=== PATIENT | male | born 1945 | race Caucasian/White ===

== ENCOUNTER 2022-09-20 13:53 | Emergency (ER) | payer MEDICARE, SELFPAY ==
--- NOTE | 2022-09-20 14:04 | ED.URI ---
HPI - URI/Sore Throat General Chief Complaint: Upper Respiratory Infection Stated Complaint: cough and sore throat Source: patient and RN notes reviewed History of Present Illness HPI Narrative: 77-year-old male presents to Urgent Care complains of a cough and sore throat for the last week. Patient is unknown on the fevers. Patient denies any chest pain, shortness of breath, congestion, ear pain, vomiting, diarrhea, or abdominal pain. Patient states his had the same symptoms a week before and was placed on antibiotic with good results. Some parts of this dictation were generated by voice recognition software and may contain typographical and/or grammatical inaccuracies. Related Data Home Medications Medication Instructions Recorded Confirmed famotidine 20 mg tablet mg 09/20/22 glipizide 10 mg tablet mg 09/20/22 meloxicam 15 mg tablet mg 09/20/22 nifedipine 90 mg tablet,extended mg PO 09/20/22 release pravastatin 40 mg tablet mg 09/20/22 tamsulosin 0.4 mg capsule mg PO 09/20/22 valsartan 160 tablet 09/20/22 mg-hydrochlorothiazide 12.5 mg tablet Allergies Allergy/AdvReac Type Severity Reaction Status Date / Time No Known Allergies Allergy Unknown Unverified 02/24/19 10:46 Review of Systems Review of Systems: Pertinent positives and pertinent negatives per HPI. PMFSH Comments At the time of my signature, I reviewed and agree with the nursing past medical, surgical, social, and family history. There is no relevant family history pertinent to the patient complaint. Exam Narrative: GENERAL: This is a well-nourished, well-developed patient, in no apparent distress. HEAD: normocephalic, atraumatic. EYES: Sclera clear/white. Vision is grossly intact. EARS: External ears normal, auditory canals clear and without drainage, TMs normal without perforation. Hearing grossly intact. NOSE: External nose normal with no obvious nasal discharge, nares without redness, no rhinorrhea. THROAT: Mucous membranes moist, posterior pharynx erythema. NECK: Neck supple, non-tender without lymphadenopathy, masses or thyromegaly. CARDIOVASCULAR: Regular rate and rhythm without murmurs, gallops, or rubs. RESPIRATORY: Clear to auscultation. Breath sounds equal bilaterally. No wheezes, rales, or rhonchi. GASTROINTESTINAL: Abdomen soft, non-tender, nondistended. Bowel sounds are active. No hepato-splenomegaly, or palpable masses. No guarding. SKIN: warm, intact with no suspicious lesions or rash, good texture and turgor. NEURO: awake, alert, and oriented to person, place and time. There were no obvious focal neurologic abnormalities. EXTREMITIES: No clubbing, cyanosis, or edema. No joint tenderness, effusion, or edema noted. BACK: Nontender without deformity or crepitance. No flank tenderness. Course Course Level of Care: Express Care Visit Vital Signs Vital signs: Vital Signs Temperature 100.4 F H 09/20/22 14:10 Pulse Rate 111 H 09/20/22 14:10 Respiratory Rate 22 H 09/20/22 14:10 Blood Pressure 146/76 H 09/20/22 14:10 Pulse Oximetry 97 09/20/22 14:10 Oxygen Delivery Room Air 09/20/22 14:10 Temperature 100.4 F H 09/20/22 14:10 Pulse Rate 111 H 09/20/22 14:10 Respiratory Rate 22 H 09/20/22 14:10 Blood Pressure 146/76 H 09/20/22 14:10 Pulse Oximetry 97 09/20/22 14:10 Oxygen Delivery Room Air 09/20/22 14:10 Reviewed MDM - URI/Sore Throat MDM Narrative Medical decision making narrative: Increase fluids at home. Avoid any and all smoke. May use a humidifier in the bedroom. Increase your Vitamin C. Follow-up with personal physician in 2-5 days. Rapid strep is negative in the office; however we will send to the lab for confirmation; there is a small percentage chance that it can come back positive; if it is, we will call you in 2-3days; and your prescription will be call in to your pharmacy. However, there is NO indication for antibiotic at this time. -Increase your fluids and Vitamin
[2022-09-20 14:10] VITALS: BP 146/76; PULSE 111; RESP 22; TEMP 38; O2SAT 97
== END 2022-09-20 14:35 | disposition home or self-care (01) ==
PROVIDERS: Emergency Provider Nurse Practitioner Family; PCP Internal Medicine
DX: J40 Bronchitis, not specified as acute or chronic (principal); E11.9 Type 2 diabetes mellitus without complications
CPT/HCPCS: 87081; 87880; 99203; G0463

== ENCOUNTER 2025-01-05 08:31 | Emergency (ER) | payer MEDICARE, SELFPAY ==
--- OUTSIDE RECORDS SUMMARY | 2025-01-05 08:33 | XMS_ITS | Encounter Summary ---
Author Organization [facility] Address [address] [place] [address] Phone Care Team Providers Care Shipping Technician Name Role Phone Ricardo Wayne MD Primary Care Provider [phone] Nima Wisdom MD Unavailable [phone] Brett Winter MD Unavailable Ai Lopez MD Unavailable Jonathon Castaneda OD Unavailable [phone] Reason for Visit * Reason Comments Medication Refill Encounter Details Date Type Department Care Team (Late st Contact Info) Description 12/29/2022 Refill [facility] - Primary Care - [place] [address] [place] [address] Ricardo Wayne MD [address] [place] [address] Medication Refill Social History Tobacco Use Types Packs/Day Years Used Date Smoking Tobacco: Former Cigarettes 1 20 Smokeless Tobacco: Never Comments:Quit 40yrs ago Alcohol Use Standard Drinks/Week Comments No 0 (1 standard drink = 0.6 oz pur e alcohol) PHQ-2 Answer Date Recorded Total Score - Questions 1-9 0 09/11 Sexually Active Control Partners Comments Not Currently Sex and Gender Information Value Date Recorded Sex Assigned at Male 01/23/2023 7:40 AM CDT Legal Sex Male 10:30 PM CDT Gender Identity Male 01/23/2023 7:40 AM CDT Sexual Orientation Not on file COVID-19 Exposure Response Date Recorded In the last 10 days, have yo u been in contact with someone who was confirmed or suspected to have Coronavirus/COVID-19? No / Unsure 12/06/2022 8:01 AM CDT documented as of this encounter Miscellaneous Notes * Telephone Encounter - Ricardo Wayne MD - 12/30/2022 7:42 AM CDT Refill request approved. * Telephone Encounter - Selma Leal RN - 12/29/2022 4:13 PM CDT Medication failed the protocol, provider to review and approve the medication order if appropriate. Requested Prescriptions Pending Prescriptions Disp Refills meloxicam (MOBIC) 15 MG Tablet [Pharmacy Med Name: MELOXICAM 15MG TABLETS] 90 Tablet 1 Sig: TAKE 1 TABLET BY MOUTH DAILY NSAIDs Protocol Failed - 12/29/2022 4:12 PM Failed - Not delegated, patient not between 1 and 65 years of age Passed - Normal serum creatinine in past 12 months CREATININE, BLOOD Date Value Ref Range Status 12/06/2022 0.96 0.80 - 1.30 mg/dL Final Passed - Visit with relevant provider in past 12 months or upcoming 90 days Recent Visits Date Type Provider Dept 12/06/22 Office Visit Ricardo Wayne MD [facility] 06/02/22 Office Visit Ricardo Wayne MD [facility] Showing recent visits within past 365 days and meeting all other requirements Future Appointments No visits were found meeting these conditions. Showing future appointments within next 90 days and meeting all other requirements Passed - No matching NSAID med order in past 45 days No matching medication orders between 11/14/2022 4:13 PM and 12/29/2022 4:13 PM Passed - AST less than 55 or ALT less than 90 in past 12 months SGOT (AST) Date Value Ref Range Status 12/06/2022 18 <=40 U/L Final SGPT (ALT) Date Value Ref Range Status 12/06/2022 19 <=41 U/L Final Passed - HGB greater than 10 or HCT greater than 30 in past 12 months HEMOGLOBIN (HGB) Date Value Ref Range Status 12/06/2022 15.7 13.0 - 16.5 g/dL Final HEMATOCRIT (HCT) Date Value Ref Range Status 12/06/2022 48.9 38.0 - 50.0 % Final documented in this encounter Plan of Treatment Upcoming Encounters Date Type Department Care Team (Late st Contact Info) Description 01/20/2025 8:15 AM CDT Office Visit [facility] - Primary Care - [place] [address] [place] [address] Ricardo Wayne MD [address] [place] [address] 01/28/2025 8:00 AM CDT Office Visit [facility] - Endocrinology - [place] [address] [place] [address] Ai Lopez MD [address] [address] 03/19/2025 10:20 AM CDT Office Visit [facility] Oncology Services [address] [place] [address] Nima Wisdom MD [address] [place] [address] Discharge Disposition: Discharged to home or Selfcare documented as of this encounter Visit Diagnoses Not on filedocumented in this encounter Additional Health Concerns Assessment Noted Time PHQ-9 Depression Total Score: 0 11/13/19 21 9:00 AM CDT documented as of this encounter Care Teams Shipping Technician Relationship Specialty Start Date End Date Ricardo Wayne MD [address] [place] [address] PCP - General Internal Medicine 03/08/15 Nima Wisdom MD [address] [place] [address] Consulting Physician Hematology 08/25/15 Brett Winter MD [address] [place] [address] Consulting Physician Orthopaedic Sports Medicine 09/20/18 Ai Lopez MD [address] [phone] Consulting Physician Endocrinology 05/14/20 Jonathon Castaneda, IRIS [address] [place] [address] Consulting Physician Ophthalmology 04/18/24 documented as of this encounter
--- OUTSIDE RECORDS SUMMARY | 2025-01-05 08:33 | XMS_ITS | Encounter Summary ---
Author Organization [facility] Address [address] [place] [address] Phone Care Team Providers Care Commercial Engineer Name Role Phone Ricardo Wayne MD Primary Care Provider [phone] Nima Wisdom MD Unavailable [phone] Brett Winter MD Unavailable Ai Lopez MD Unavailable Jonathon Castaneda OD Unavailable [phone] Reason for Visit * Reason Comments Medication Refill Encounter Details Date Type Department Care Team (Late st Contact Info) Description 03/13/2021 Refill [facility] - Primary Care - [place] [address] [place] [address] Ricardo Wayne MD [address] [place] [address] Medication Refill Social History Tobacco Use Types Packs/Day Years Used Date Smoking Tobacco: Former Cigarettes 1 20 Smokeless Tobacco: Never Alcohol Use Standard Drinks/Week Comments No 0 (1 standard drink = 0.6 oz pur e alcohol) PHQ-2 Answer Date Recorded Total Score - Questions 1-9 0 08/2020 Sex and Gender Information Value Date Recorded Sex Assigned at Male 01/23/2023 7:40 AM CDT Legal Sex Male 10:30 PM CDT Gender Identity Male 01/23/2023 7:40 AM CDT Sexual Orientation Not on file documented as of this encounter Miscellaneous Notes * Telephone Encounter - Nato Birch PAC - 03/15/2021 10:55 AM CDT Rx refill approved. * Telephone Encounter - Selma Leal RN - 03/15/2021 9:25 AM CDT Medication failed the protocol, provider to review and approve the medication order if appropriate. Requested Prescriptions Pending Prescriptions Disp Refills meloxicam (MOBIC) 15 MG Tablet [Pharmacy Med Name: MELOXICAM 15 MG TABLET] 90 Tablet 0 Sig: TAKE 1 TABLET BY MOUTH EVERY DAY NSAIDs Protocol Failed - 03/15/2021 9:25 AM Failed - Not delegated, patient not between 1 and 65 years of age Passed - Normal serum creatinine in past 12 months CREATININE, BLOOD Date Value Ref Range Status 11/12/2020 0.88 0.80 - 1.30 mg/dL Final Passed - Visit with relevant provider in past 12 months or upcoming 90 days Recent Visits Date Type Provider Dept 11/12/20 Office Visit Ricardo Wayne MD [facility] [place] [facility] 05/14/20 Office Visit Ricardo Wayne MD [facility] [place] [facility] Showing recent visits within past 365 days and meeting all other requirements Future Appointments Date Type Provider Dept 05/21/21 Appointment Ricardo Wayne MD [facility] [place] [facility] Showing future appointments within next 90 days and meeting all other requirements Passed - No matching NSAID med order in past 45 days No matching medication orders between 01/29/2021 9:25 AM and 03/15/2021 9:25 AM Passed - AST less than 55 or ALT less than 90 in past 12 months SGOT (AST) Date Value Ref Range Status 11/12/2020 17 <=40 U/L Final SGPT (ALT) Date Value Ref Range Status 11/12/2020 19 <=41 U/L Final Passed - HGB greater than 10 or HCT greater than 30 in past 12 months HEMOGLOBIN (HGB) Date Value Ref Range Status 11/12/2020 13.6 13.0 - 16.5 g/dL Final HEMATOCRIT (HCT) Date Value Ref Range Status 11/12/2020 42.0 38.0 - 50.0 % Final documented in this encounter Plan of Treatment Upcoming Encounters Date Type Department Care Team (Late st Contact Info) Description 01/20/2025 8:15 AM CDT Office Visit [facility] Primary Care - [place] [address] [place] [address] Ricardo Wayne MD [address] [place] [address] 01/28/2025 8:00 AM CDT Office Visit [facility] Endocrinology - [place] [address] [place] [address] Ai Lopez MD [address] [address] 03/19/2025 10:20 AM CDT Office Visit [facility] - Cancer Center Oncology Services [address] [place] [address] Nima Wsidom MD [address] [place] [address] Discharge Disposition: Discharged to home or Selfcare documented as of this encounter Visit Diagnoses Not on filedocumented in this encounter Additional Health Concerns Assessment Noted Time PHQ-9 Depression Total Score: 0 11/13/19 9:00 AM CDT documented as of this encounter Care Teams Commercial Engineer Relationship Specialty Start Date End Date Ricardo Wayne MD [address] [place] [address] PCP - General Internal Medicine 03/08/15 Nima Wisdom MD [address] [place] [address] Consulting Physician Hematology 08/25/15 Brett Winter MD [address] [place] [address] Consulting Physician Orthopaedic Sports Medicine 09/20/18 Ai Lopez MD [address] [address] Consulting Physician Endocrinology 05/14/20 Jonathon Castaneda OD [address] [place] [address] Consulting Physician Ophthalmology 04/18/24 documented as of this encounter
--- OUTSIDE RECORDS SUMMARY | 2025-01-05 08:33 | XMS_ITS | Encounter Summary ---
Author Organization [facility] Address [address] [place] [address] Phone Care Team Providers Care Drawer Fitter Name Role Phone Ricardo Wayne MD Primary Care Provider [phone] Nima Wisdom MD Unavailable [phone] Brett Winter MD Unavailable Ai Lopez MD Unavailable Jonathon Castaneda OD Unavailable [phone] Reason for Visit * Reason Comments Medication Refill Encounter Details Date Type Department Care Team (Late st Contact Info) Description 12/19/2021 Refill [facility] - Primary Care - [place] [address] [place] [address] Ricardo Wayne MD [address] [place] [address] Medication Refill Social History Tobacco [...] suspected to have Coronavirus/COVID-19? No / Unsure 12/01/2021 10:28 AM CDT documented as of this encounter Plan of Treatment Upcoming Encounters Date Type Department Care Team (Late st Contact Info) Description 01/20/2025 8:15 AM CDT Office Visit [facility] - Primary Care - [place] [address] [place] [address] Ricardo Wayne MD [address] [place] [address] 01/28/2025 8:00 AM CDT Office Visit [facility] - Endocrinology [facility] [address] [place] [address] Ai Lopez MD [address] [address] 03/19/2025 10:20 AM CDT Office Visit [facility] - Cancer Center Oncology Services [address] [place] [address] Nima Wisdom MD [address] [place] [address] Discharge Disposition: Discharged to home or Selfcare documented as of this encounter Visit Diagnoses Diagnosis Benign prostatic hyperplasia with lower urinary tract symptoms documented in this encounter Additional Health Concerns Assessment Noted Time PHQ-9 Depression Total Score: 0 11/13/19 21 9:00 AM CDT documented as of this encounter Care Teams Drawer Fitter Relationship Specialty Start Date End Date Ricardo Wayne MD [address] [place] [address] PCP - General Internal Medicine 03/08/15 Nima Wisdom MD [address] [place] [address] Consulting Physician Hematology 08/25/15 Brett Winter MD [address] [place] [address] Consulting Physician Orthopaedic Sports Medicine 09/20/18 Ai Lopez MD [address] [address] Consulting Physician Endocrinology 05/14/20 Jonathon Castaneda OD [address] [place] [address] [place] [address] Consulting Physician Ophthalmology 04/18/24 documented as of this encounter
--- OUTSIDE RECORDS SUMMARY | 2025-01-05 08:33 | XMS_ITS | Encounter Summary ---
Author Organization [facility] Address [address] [place] [address] Phone Care Team Providers Care Manager Shift Name Role Phone Ricardo Wayne MD Primary Care Provider [phone] Nima Wisdom MD Unavailable [phone] Brett Winter MD Unavailable Ai Lopez MD Unavailable Jonathon Castaneda OD Unavailable [phone] Reason for Visit * Reason Comments Medication Refill Encounter Details Date Type Department Care Team (Late st Contact Info) Description 12/06/2021 Refill [facility] - Primary Care - [place] [address] [place] [address] Ricardo Wayne MD [address] [place] [address] Medication Refill Social History Tobacco [...] encounter Miscellaneous Notes * Telephone Encounter - Yue Jacobs RN - 12/07/2021 8:00 AM CDT Medication discontinued 12/01/2021. documented in this encounter Plan of Treatment Upcoming Encounters Date Type Department Care Team (Late st Contact Info) Description 01/20/2025 8:15 AM CDT Office Visit [facility] - Primary Care - [place] [address] [place] [address] Ricardo Wayne MD [address] [place] [address] 01/28/2025 8:00 AM CDT Office Visit [facility] - Endocrinology [facility] [address] [place] [address] Ai Lopez MD [address] [address] 03/19/2025 10:20 AM CDT Office Visit [facility] Cancer Center Oncology Services [address] [place] [address] Nima Wisdom MD [address] [place] [address] Discharge Disposition: Discharged to home or Selfcare documented as of this encounter Visit Diagnoses Not on filedocumented in this encounter Additional Health Concerns Assessment Noted Time PHQ-9 Depression Total Score: 0 11/13/19 21 9:00 AM CDT documented as of this encounter Care Teams Manager Shift Relationship Specialty Start Date End Date Ricardo Wayne MD [address] [place] [address] PCP - General Internal Medicine 03/08/15 Nima Wisdom MD [address] [place] [address] Consulting Physician Hematology 08/25/15 Brett Winter MD [address] [place] [address] Consulting Physician Orthopaedic Sports Medicine 09/20/18 Ai Lopez MD [address] [address] Consulting Physician Endocrinology 05/14/20 Jonathon Castaneda, OD [address] [place] [address] Consulting Physician Ophthalmology 04/18/24 documented as of this encounter
--- OUTSIDE RECORDS SUMMARY | 2025-01-05 08:33 | XMS_ITS | Encounter Summary ---
Author Organization [facility] Address [address] [place] [address] Phone Care Team Providers Care Financial Reporting Accountant Name Role Phone Ricardo Wayne MD Primary Care Provider [phone] Nima Wisdom MD Unavailable [phone] Brett Winter MD Unavailable Ai Lopez MD Unavailable Jonathon Castaneda OD Unavailable [phone] Reason for Visit * Reason Comments Medication Refill Encounter Details Date Type Department Care Team (Late st Contact Info) Description 04/21/2021 Refill [facility] [address] [place] [address] Ricardo Wayne MD [address] [place] [address] Medication Refill Social History Tobacco Use Types [...] Exposure Response Date Recorded In the last month, have you been in contact with someone who was confirmed or suspected to have Coronavirus / COVID-19? No / Unsure 04/13/2021 7:44 AM CDT documented as of this encounter Miscellaneous Notes * Telephone Encounter - Jamilah Jenkins RN - 04/22/2021 8:02 AM PERSONNEL SECURITY SPECIALIST Medication approved and signed per standing order protocol. ONNEL SECURITY SPECIALIST documented in this encounter Plan of Treatment Upcoming Encounters Date Type Department Care Team (Late st Contact Info) Description 01/20/2025 8:15 AM CDT Office Visit [facility] - Primary Care - [place] [address] [place] [address] Ricardo Wayne MD [address] [place] [address] 01/28/2025 8:00 AM CDT Office Visit [facility] - Endocrinology - [place] [address] [place] [address] Ai Lopez MD [address] [address] 03/19/2025 10:20 AM CDT [facility] [address] [place] [address] Nima Wisdom MD [address] [place] [address] Discharge Disposition: Discharged to home or Selfcare documented as of this encounter Visit Diagnoses Diagnosis Benign prostatic hyperplasia with lower urinary tract symptoms documented in this encounter Additional Health Concerns Assessment Noted Time PHQ-9 Depression Total Score: 0 06/03/20 21 9:00 AM CDT documented as of this encounter Care Teams Financial Reporting Accountant Relationship Specialty Start Date End Date Ricardo Wayne MD [address] [place] [address] PCP - General Internal Medicine 03/08/15 Nima Wisdom MD [address] [place] [address] Consulting Physician Hematology 08/25/15 Brett Winter MD [address] [place] [address] Consulting Physician Orthopaedic Sports Medicine 09/20/18 Ai Lopez MD [address] [phone] Consulting Physician Endocrinology 05/14/20 Jonathon Castaneda, IRIS [address] [place] [address] [place] [address] Consulting Physician Ophthalmology 04/18/24 documented as of this encounter
--- OUTSIDE RECORDS SUMMARY | 2025-01-05 08:33 | XMS_ITS | Encounter Summary ---
Author Organization [facility] Address [address] [place] [address] Phone Care Team Providers Care Assistant Reading Teacher Name Role Phone Ricardo Wayne MD Primary Care Provider [phone] Nima Wisdom MD Unavailable [phone] Brett Winter MD Unavailable Ai Lopez MD Unavailable Jonathon Castaneda OD Unavailable Reason for Visit * Reason Comments Medication Refill Encounter Details Date Type Department Care Team (Late st Contact Info) Description 10/14/2023 Refill [facility] - Endocrinology - [place] [address]2 [place] [address] Ai Lopez MD [address] [address] Medication Refill Social History Tobacco Use Types Packs/Day Years Used Date Smoking Tobacco: Former Cigarettes 1 20 Smokeless Tobacco: Never Comments:Quit 40yrs ago Alcohol Use Standard Drinks/Week Comments No 0 (1 standard drink = 0.6 oz pur e alcohol) PHQ-2 Answer Date Recorded Total Score - Questions 1-9 0 06/12 Sexually Active Control Partners Comments Not Currently Sex and Gender Information Value Date Recorded Sex Assigned at Male 01/23/2023 7:40 AM CDT Legal Sex Male 10:30 PM CDT Gender Identity Male 01/23/2023 7:40 AM CDT Sexual Orientation Not on file documented as of this encounter Miscellaneous Notes * Telephone Encounter - Jamilah Gloria, RN - 10/16/2023 9:57 AM CDT Medication(s) refilled and signed per [facility] Chronic Medication Refill Standing Order for Pediatric and Adult Patients. documented in this encounter Plan of Treatment Upcoming Encounters Date Type Department Care Team (Late st Contact Info) Description 01/20/2025 8:15 AM CDT Office Visit [facility] - Primary Care - [place] [address] [place] [address] Ricardo Wayne MD [address] [place] [address] 01/28/2025 8:00 AM CDT Office Visit [facility] - Endocrinology - [place] [address] [place] [address] Ai Lopez MD [address] [address] 03/19/2025 10:20 AM CDT Office Visit [facility] - Cancer Center Oncology Services [address] [place] [address] Nima Wisdom MD [address] [place] [address] Discharge Disposition: Discharged to home or Selfcare documented as of this encounter Visit Diagnoses Not on filedocumented in this encounter Additional Health Concerns Assessment Noted Time PHQ-9 Depression Total Score: 0 06/23/19 24 9:21 AM ROTARY LITHOGRAPHIC PRESS OPERATOR documented as of this encounter Care Teams Assistant Reading Teacher Relationship Specialty Start Date End Date Ricardo Wayne MD [address] [place] [address] PCP - General Internal Medicine 03/08/15 Nima Wisdom MD [address] [place] [address] Consulting Physician Hematology 08/25/15 Brett Winter MD [address] [place] [address] Consulting Physician Orthopaedic Sports Medicine 09/20/18 Ai Lopez MD #[address] [phone] Consulting Physician Endocrinology 05/14/20 Jonathon Castaneda, IRIS [address] [place] [address] Consulting Physician Ophthalmology 04/18/24 documented as of this encounter
--- OUTSIDE RECORDS SUMMARY | 2025-01-05 08:33 | XMS_ITS | Encounter Summary ---
Author Organization [facility] Address [address] [place] [address] Phone Care Team Providers Care Order Tracer Name Role Phone Ricardo Wayne MD Primary Care Provider [phone] Nima Wisdom MD Unavailable [phone] Brett Winter MD Unavailable Ai Lopez MD Unavailable Jonathon Castaneda OD Unavailable [phone] Reason for Visit * Reason Comments Medication Refill Encounter Details Date Type Department Care Team (Late st Contact Info) Description 07/06/2023 Refill [facility] - Primary Care - [place] [address] [place] [address] Ricardo Wayne MD [address] [place] [address] Medication Refill Social History Tobacco [...] on file documented as of this encounter Plan of Treatment Upcoming Encounters Date Type Department Care Team (Late st Contact Info) Description 01/20/2025 8:15 AM CDT Office Visit [facility] Primary Care - [place] [address] [place] [address] Ricardo Wayne MD [address] [place] [address] 01/28/2025 8:00 AM CDT Office Visit [facility] Endocrinology - [place] [address] [place] [address] Ai Lopez MD [address] [address] 03/19/2025 10:20 AM CDT Office Visit [facility] Center Oncology Services [address] [place] [address] Nima Wisdom MD [address] [place] [address] Discharge Disposition: Discharged to home or Selfcare documented as of this encounter Visit Diagnoses Not on filedocumented in this encounter Additional Health Concerns Assessment Noted Time PHQ-9 Depression Total Score: 0 06/23/19 24 9:21 AM DESK EDITOR documented as of this encounter Care Teams Order Tracer Relationship Specialty Start Date End Date Ricardo Wayne MD [address] [place] [address] PCP - General Internal Medicine 03/08/15 Nima Wisdom MD [address] [place] [address] Consulting Physician Hematology 08/25/15 Brett Winter MD [address] [place] [address] Consulting Physician Orthopaedic Sports Medicine 09/20/18 Ai Lopez MD #[address] [address] Consulting Physician Endocrinology 05/14/20 Jonathon Castaneda OD [address] [place] [address] [place] [address] Consulting Physician Ophthalmology 04/18/24 documented as of this encounter
--- OUTSIDE RECORDS SUMMARY | 2025-01-05 08:33 | XMS_ITS | Encounter Summary ---
Author Organization [facility] Address [address] [place] [address] Phone Care Team Providers Care Ship/Rec/Doc Control Name Role Phone Ricardo Wayne MD Primary Care Provider [phone] Nima Wisdom MD Unavailable [phone] Brett Winter MD Unavailable Ai Lopez MD Unavailable Jonathon Castaneda OD Unavailable [phone] Reason for Visit * Reason Comments Medication Refill Encounter Details Date Type Department Care Team (Late st Contact Info) Description 10/23/2021 Refill [facility] - Primary Care - [place] [address] [place] [address] Ricardo Wayne MD [address] [place] [address] Medication Refill Social History Tobacco [...] suspected to have Coronavirus/COVID-19? No / Unsure 10/19/2021 7:51 AM CDT documented as of this encounter Plan of Treatment Upcoming Encounters Date Type Department Care Team (Late st Contact Info) Description 01/20/2025 8:15 AM CDT Office Visit [facility] - Primary Care - [place] [address] [place] [address] Ricardo Wayne MD [address] [place] [address] 01/28/2025 8:00 AM CDT Office Visit [facility] - Endocrinology - [place] [address] [place] [address] Ai Lopez MD #[address] [address] 03/19/2025 10:20 AM CDT Office Visit [facility] - Cancer Center Oncology Services [address] [place] [address] Nima Wisdom MD [address] [place] [address] Discharge Disposition: Discharged to home or Selfcare documented as of this encounter Visit Diagnoses Not on filedocumented in this encounter Additional Health Concerns Assessment Noted Time PHQ-9 Depression Total Score: 0 11/13/19 21 9:00 AM CDT documented as of this encounter Care Teams Ship/Rec/Doc Control Relationship Specialty Start Date End Date Ricardo Wayne MD [address] [place] [address] PCP - General Internal Medicine 03/08/15 Nima Wisdom MD [address] [place] [address] Consulting Physician Hematology 08/25/15 Brett Wintre MD [address] [place] [address] Consulting Physician Orthopaedic Sports Medicine 09/20/18 Ai Lopez MD #[address] [phone] Consulting Physician Endocrinology 05/14/20 Jonathon Castaneda OD [address] [place] [address] [place] [address] Consulting Physician Ophthalmology 04/18/24 documented as of this encounter
--- OUTSIDE RECORDS SUMMARY | 2025-01-05 08:33 | XMS_ITS | Encounter Summary ---
Author Organization [facility] Address [address] [place] [address] Phone Care Team Providers Care Hydro Station Operator Name Role Phone Ricardo Wayne MD Primary Care Provider [phone] Nima Wisdom MD Unavailable [phone] Brett Winter MD Unavailable Ai Lopez MD Unavailable Jonathon Castaneda OD Unavailable [phone] Reason for Visit * Reason Comments Medication Refill Encounter Details Date Type Department Care Team (Late st Contact Info) Description 01/07/2022 Refill [facility] - Primary Care - [place] [address] [place] [address] Ricardo Wayne MD [address] [place] [address] Medication Refill Social History Tobacco [...] Telephone Encounter - Ricardo Wayne MD - 01/07/2022 4:23 PM CDT Refill request approved. * Telephone Encounter - Selma Leal RN - 01/07/2022 4:17 PM CDT Medication failed the protocol, provider to review and approve the medication order if appropriate. Requested Prescriptions Pending Prescriptions Disp Refills meloxicam (MOBIC) 15 MG Tablet [Pharmacy Med Name: MELOXICAM 15MG TABLETS] 90 Tablet 1 Sig: Take 1 Tablet by mouth daily. NSAIDs Protocol Failed - 01/07/2022 3:16 PM Failed - Not delegated, patient not between 1 and 65 years of age Passed - Normal serum creatinine in past 12 months CREATININE, BLOOD Date Value Ref Range Status 12/01/2021 1.01 0.80 - 1.30 mg/dL Final Passed - Visit with relevant provider in past 12 months or upcoming 90 days Recent Visits Date Type Provider Dept 12/01/21 Office Visit Ricardo Wayne MD [facility] [place] [facility] 10/04/21 Office Visit Pau Blanco APRN, [employer] SPRAY UNIT ADJUSTER [facility] [place] [facility] 05/21/21 Office Visit Ricardo Wayne MD [facility] Showing recent visits within past 365 days and meeting all other requirements Future Appointments No visits were found meeting these conditions. Showing future appointments within next 90 days and meeting all other requirements Passed - No matching NSAID med order in past 45 days No matching medication orders between 11/23/2021 4:17 PM and 01/07/2022 4:17 PM Passed - AST less than 55 or ALT less than 90 in past 12 months SGOT (AST) Date Value Ref Range Status 12/01/2021 24 <=40 U/L Final SGPT (ALT) Date Value Ref Range Status 12/01/2021 20 <=41 U/L Final Passed - HGB greater than 10 or HCT greater than 30 in past 12 months HEMOGLOBIN (HGB) Date Value Ref Range Status 09/20/2021 15.0 13.0 - 16.5 g/dL Final HEMATOCRIT (HCT) Date Value Ref Range Status 09/20/2021 46.4 38.0 - 50.0 % Final documented in this encounter Plan of Treatment Upcoming Encounters Date Type Department Care Team (Late st Contact Info) Description 01/20/2025 8:15 AM CDT Office Visit [facility] - Primary Care - [place] [address] [place] [address] Ricardo Wayne MD [address] [place] [address] 01/28/2025 8:00 AM CDT Office Visit [facility] - Endocrinology - [place] [address] [place] [address] Ai Lopez MD [address] [address] 03/19/2025 10:20 AM CDT Office Visit [facility] - Cancer Center Oncology Services [address] [place] [address] Nima Wisdom MD [address] [place] [address] Discharge Disposition: Discharged to home or Selfcare documented as of this encounter Visit Diagnoses Not on filedocumented in this encounter Additional Health Concerns Assessment Noted Time PHQ-9 Depression Total Score: 0 11/13/19 21 9:00 AM CDT documented as of this encounter Care Teams Hydro Station Operator Relationship Specialty Start Date End Date Ricardo Wayne MD [address] [place] [address] PCP - General Internal Medicine 03/08/15 Nima Wisdom MD [address] [place] [address] Consulting Physician Hematology 08/25/15 Brett Winter MD [address] [place] [address] Consulting Physician Orthopaedic Sports Medicine 09/20/18 Ai Lopez MD #[address] [phone] Consulting Physician Endocrinology 05/14/20 Jonathon Castaneda OD [facility] [address] [address] Consulting Physician Ophthalmology 04/18/24 documented as of this encounter
--- OUTSIDE RECORDS SUMMARY | 2025-01-05 08:33 | XMS_ITS | Encounter Summary ---
Author Organization [facility] Address [address] [place] [address] Phone Care Team Providers Care Outside Sales Account Executive Name Role Phone Ricardo Wayne MD Primary Care Provider [phone] Nima Wisdom MD Unavailable [phone] Brett Winter MD Unavailable Ai Lopez MD Unavailable Jonathon Castaneda OD Unavailable [phone] Reason for Visit * Reason Comments Medication Refill Encounter Details Date Type Department Care Team (Late st Contact Info) Description 10/30/2020 Refill [facility] [address] [place] [address] Ricardo Wayne MD [address] [place] [address] Medication Refill Social History Tobacco Use Types Packs/Day Years Used Date Smoking Tobacco: Former Cigarettes 1 20 Smokeless Tobacco: Never Alcohol Use Standard Drinks/Week Comments No 0 (1 standard drink = 0.6 oz pur e alcohol) PHQ-2 Answer Date Recorded Total Score - Questions 1-9 0 10/10 Sex and Gender Information Value Date Recorded Sex Assigned at Male 01/23/2023 7:40 AM CDT Legal Sex Male 10:30 PM CDT Gender Identity Male 01/23/2023 7:40 AM CDT Sexual Orientation Not on file COVID-19 Exposure Response Date Recorded In the last month, have you been in contact with someone who was confirmed or suspected to have Coronavirus / COVID-19? No / Unsure 10/07/2020 8:23 AM CDT documented as of this encounter Miscellaneous Notes * Telephone Encounter - Selma Leal RN - 10/30/2020 9:16 AM CDT The original prescription was reordered on 10/07/2020 by Ai Lopez MD. Renewing this prescription may not be appropriate. documented in this encounter Plan of Treatment Upcoming Encounters Date Type Department Care Team (Late st Contact Info) Description 01/20/2025 8:15 AM CDT Office Visit [facility] - Primary Care - [place] [address] [place] [address] Ricardo Wayne MD [address] [place] [address] 01/28/2025 8:00 AM CDT Office Visit [facility] - Endocrinology - [place] [address] [place] [address] Ai Lopez MD #[address] [address] 03/19/2025 10:20 AM CDT Office Visit [facility] - Cancer Center Oncology Services [address] [place] [address] Nima Wisdom MD [address] [place] [address] Discharge Disposition: Discharged to home or Selfcare documented as of this encounter Visit Diagnoses Not on filedocumented in this encounter Additional Health Concerns Assessment Noted Time PHQ-9 Depression Total Score: 0 10/22/19 20 9:00 AM CDT documented as of this encounter Care Teams Outside Sales Account Executive Relationship Specialty Start Date End Date Ricardo Wayne MD [address] [place] [address] PCP - General Internal Medicine 03/08/15 Nima Wisdom MD [address] [place] [address] Consulting Physician Hematology 08/25/15 Brett Winter MD [address] [place] [address] Consulting Physician Orthopaedic Sports Medicine 09/20/18 Ai Lopez MD #[address] [address] Consulting Physician Endocrinology 05/14/20 Jonathon Castaneda, OD [address] [place] [address] [place] [address] Consulting Physician Ophthalmology 04/18/24 documented as of this encounter
--- OUTSIDE RECORDS SUMMARY | 2025-01-05 08:33 | XMS_ITS | Encounter Summary ---
Author Organization [facility] Address [address] [place] [address] Phone Care Team Providers Care Asset Protection Specialist Name Role Phone Ricardo Wayne MD Primary Care Provider [phone] Nima Wisdom MD Unavailable [phone] Brett Winter MD Unavailable Ai Lopez MD Unavailable Jonathon Castaneda OD Unavailable [phone] Reason for Visit * Reason Comments Medication Refill Encounter Details Date Type Department Care Team (Late st Contact Info) Description 08/15/2023 Refill [facility] - [facility] [address] [place] [address] Ricardo Wayne MD [address] [place] [address] Medication Refill Social History Tobacco Use Types [...] encounter Miscellaneous Notes * Telephone Encounter - Doa Avelar RN - 08/15/2023 3:03 PM CST Medication(s) refilled and signed per [facility] Chronic Medication Refill Standing Order for Pediatricand Adult Patients. Requested Prescriptions Pending Prescriptions Disp Refills finasteride (PROSCAR) 5 MG Tablet [Pharmacy Med Name: FINASTERIDE 5MG TABLETS] 90 Tablet 1 Sig: TAKE 1 TABLET BY MOUTH DAILY Benign Prostatic Hyperplasia Medications Protocol Passed - 08/15/2023 2:59 PM Passed - Visit with relevant provider in past 12 months or upcoming 90 days Recent Visits Date Type Provider Dept 06/23/23 Office Visit Ricardo Wayne MD [facility] 12/06/22 Office Visit Ricardo Wayne MD [facility] Showing recent visits within past 365 days and meeting all other requirements Future Appointments No visits were found meeting these conditions. Showing future appointments within next 90 days and meeting all other requirements famotidine (PEPCID) 20 MG Tablet [Pharmacy Med Name: FAMOTIDINE 20MG TABLETS] 90 Tablet 1 Sig: TAKE 1 TABLET BY MOUTH DAILY H2 Antagonists Protocol Passed - 08/15/2023 2:59 PM Passed - Visit with relevant provider in past 12 months or upcoming 90 days Recent Visits Date Type Provider Dept 06/23/23 Office Visit Ricardo Wayne MD [facility] 12/06/22 Office Visit Ricardo Wayne MD [facility] Showing recent visits within past 365 days and meeting all other requirements Future Appointments No visits were found meeting these conditions. Showing future appointments within next 90 days and meeting all other requirements AND DIE MAKER documented in this encounter Plan of Treatment Upcoming Encounters Date Type Department Care Team (Late st Contact Info) Description 01/20/2025 8:15 AM CDT Office Visit [facility] - Primary Care - [place] [address] [place] [address] Ricardo Wayne MD [address] [place] [address] 01/28/2025 8:00 AM CDT [facility] - Endocrinology - [place] #[address] [place] [address] Ai Lopez MD #[address] [address] 03/19/2025 10:20 AM CDT [facility] [address] [place] [address] Nima Wisdom MD [address] [place] [address] Discharge Disposition: Discharged to home or Selfcare documented as of this encounter Visit Diagnoses Diagnosis Benign prostatic hyperplasia with lower urinary tract symptoms documented in this encounter Additional Health Concerns Assessment Noted Time PHQ-9 Depression Total Score: 0 06/23/19 24 9:21 AM TOOL AND DIE MAKER documented as of this encounter Care Teams Asset Protection Specialist Relationship Specialty Start Date End Date Ricardo Wyane MD [address] [place] [address] PCP - General Internal Medicine 03/08/15 Nima Wisdom MD [address] [place] [address] Consulting Physician Hematology 08/25/15 Brett Winter MD [address] [place] [address] Consulting Physician Orthopaedic Sports Medicine 09/20/18 Ai Lopez MD #[address] [address] Consulting Physician Endocrinology 05/14/20 Jonathon Castaneda OD [address] [place] [address] Consulting Physician Ophthalmology 04/18/24 documented as of this encounter
--- OUTSIDE RECORDS SUMMARY | 2025-01-05 08:33 | XMS_ITS | Encounter Summary ---
Author Organization [facility] Address [address] [place] [address] Phone Care Team Providers Care Machine Tool Designer Name Role Phone Ricardo Wayne MD Primary Care Provider [phone] Nima Wisdom MD Unavailable [phone] Brett Winter MD Unavailable Ai Lopez MD Unavailable Jonathon Castaneda OD Unavailable [phone] Reason for Visit * Reason Comments Medication Refill Encounter Details Date Type Department Care Team (Late st Contact Info) Description 09/18/2023 Refill [facility] - Primary Care - [place] [address] [place] [address] Ricardo Wayne MD [address] [place] [address] Medication Refill Social History Tobacco [...] encounter Miscellaneous Notes * Telephone Encounter - Dao Avelar RN - 09/19/2023 8:13 AM CDT Medication(s) refilled and signed per [facility] Chronic Medication Refill Standing Order for Pediatricand Adult Patients. Requested Prescriptions Pending Prescriptions Disp Refills valsartan-hydroCHLOROthiazide (DIOVAN-HCT) 160-12.5 MG Tablet [Pharmacy Med Name: VALSARTAN/HCTZ 160MG/12.5MG TABLETS] 90 Tablet 1 Sig: TAKE 1 TABLET BY MOUTH EVERY DAY ANGIOTENSIN-II RECEPTOR BLOCKERS-DIURETICS COMBO PROTOCOL Passed - 09/18/2023 7:29 PM Passed - Serum potassium on record in past 12 months POTASSIUM Date Value Ref Range Status 06/23/2023 4.1 3.5 - 5.1 mmol/L Final Passed - Serum sodium on record in past 12 months SODIUM Date Value Ref Range Status 06/23/2023 136 136 - 145 mmol/L Final Passed - BP on record in the past year Clinician-entered: BP Readings from Last 3 Encounters: 07/26/23 122/62 06/23/23 128/60 04/25/23 118/72 Patient-entered: No data recorded Passed - Visit with relevant provider in past year or upcoming 90 days Recent Visits Date Type Provider Dept 06/23/23 Office Visit Ricardo Wayne MD [facility] 12/06/22 Office Visit Ricardo Wayne MD [facility] Showing recent visits within past 365 days and meeting all other requirements Future Appointments No visits were found meeting these conditions. Showing future appointments within next 90 days and meeting all other requirements Passed - GFR on record in past 12 months GFR, EST. NONAFRICAN Date Value Ref Range Status 06/23/2023 >60 >=60 Final documented in this encounter Plan of Treatment Upcoming Encounters Date Type Department Care Team (Late st Contact Info) Description 01/20/2025 8:15 AM CDT Office Visit [facility] - Primary Care - [place] [address] [place] [address] Ricardo Wayne MD [address] [place] [address] 01/28/2025 8:00 AM CDT Office Visit [facility] Endocrinology - [place] #[address] [place] [address] Ai Lopez MD #[address] [address] 03/19/2025 10:20 AM CDT Office Visit [facility] - Cancer Center Oncology Services [address] [place] [address] Nima Wisdom MD [address] [place] [address] Discharge Disposition: Discharged to home or Selfcare documented as of this encounter Visit Diagnoses Not on filedocumented in this encounter Additional Health Concerns Assessment Noted Time PHQ-9 Depression Total Score: 0 06/23/19 24 9:21 AM SOLDERING MACHINE OPERATOR HELPER documented as of this encounter Care Teams Machine Tool Designer Relationship Specialty Start Date End Date Ricardo Wayne MD [address] [place] [address] PCP - General Internal Medicine 03/08/15 Nima Wisdom MD [address] [place] [address] Consulting Physician Hematology 08/25/15 Brett Winter MD [address] [place] [address] Consulting Physician Orthopaedic Sports Medicine 09/20/18 Ai Lopez MD #[address] [address] Consulting Physician Endocrinology 05/14/20 Jonathon Castaneda OD [address] [place] [address] [place] [address] Consulting Physician Ophthalmology 04/18/24 documented as of this encounter
--- OUTSIDE RECORDS SUMMARY | 2025-01-05 08:33 | XMS_ITS | Encounter Summary ---
Author Organization [facility] Address [address] [place] [address] Phone Care Team Providers Care Staff Command And Control Officer Name Role Phone Ricardo Wayne MD Primary Care Provider [phone] Nima Wisdom MD Unavailable [phone] Brett Winter MD Unavailable Ai Lopez MD Unavailable Jonathon Castaneda OD Unavailable [phone] Reason for Visit * Reason Comments Medication Refill Encounter Details Date Type Department Care Team (Late st Contact Info) Description 02/07/2021 Refill [facility] [address] [place] [address] Ricardo Wayne MD [address] [place] [address] Medication Refill Social History Tobacco Use Types [...] have Coronavirus / COVID-19? No / Unsure 01/08/2021 8:10 AM CDT documented as of this encounter Plan of Treatment Upcoming Encounters Date Type Department Care Team (Late st Contact Info) Description 01/20/2025 8:15 AM CDT Office Visit [facility] - [place] Care - [place] [address] [place] [address] Ricardo Wayne MD [address] [place] [address] 01/28/2025 8:00 AM CDT Office Visit [facility] - Endocrinology - [place] [address] [place] [address] Ai Lopez MD [address] [address] 03/19/2025 10:20 AM CDT Office Visit [facility] - Cancer Center Oncology Services [address] [place] [address] Nima Wisdom MD [address] [place] [address] Discharge Disposition: Discharged to home or Selfcare documented as of this encounter Visit Diagnoses Diagnosis Benign prostatic hyperplasia with lower urinary tract symptoms documented in this encounter Additional Health Concerns Assessment Noted Time PHQ-9 Depression Total Score: 0 11/13/19 21 9:00 AM CDT documented as of this encounter Care Teams Staff Command And Control Officer Relationship Specialty Start Date End Date Ricardo Wayne MD [address] [place] [address] PCP - General Internal Medicine 03/08/15 Nima Wisdom MD [address] [place], [place] [id number] Consulting Physician Hematology 08/25/15 Brett Winter MD [address] [place] [address] Consulting Physician Orthopaedic Sports Medicine 09/20/18 Ai Lopez MD [address] [address] Consulting Physician Endocrinology 05/14/20 Jonathon Castaneda OD [address] [place], [place] [id number] Consulting Physician Ophthalmology 04/18/24 documented as of this encounter
--- OUTSIDE RECORDS SUMMARY | 2025-01-05 08:33 | XMS_ITS | Clinical Summary ---
Author Organization [facility] Address [address] [place] [address] Phone Care Team Providers Care Automatic Brine Mixer Operator Name Role Phone Ricardo Wayne MD Primary Care Provider [phone] Nima Wisdom MD Unavailable [phone] Brett Winter MD Unavailable Ai Lopez MD Unavailable Jonathon Castaneda OD Unavailable [phone] Allergies No known active allergies Medications Multiple Vitamins-Minera ls (MULTIVITAL PO) Take 1 Tab by mouth daily. Active Aspirin 81 MG Tablet Take 81 mg by mouth daily. Active Blood Glucose Monitoring Suppl Device Test blood glucose 1x daily. E11.42, non insulin dependent 1 Each 09/05/19 20 Active Lancets Misc 1 Lancet by Does not apply route daily. Test blood glucose daily. E11.42, non-insulin dependent. 100 Lancet 3 01/09/20 21 Active Glucose Blood Strip Test blood glucose 1x daily. E11.42, non-insulin dependent 100 Strip 3 04/25/20 23 Active latanoprost (XALATAN) 0.005 % Solution Place 1 Drop in both eyes nightly. 03/19/20 24 Active NIFEdipine CR (PROCARDIA-XL) 90 MG TABLET SR 24 HR TAKE 1 TABLET BY MOUTH DAILY 90 Tablet 3 07/01/19 25 Active famotidine (PEPCID) 20 MG Tablet TAKE 1 TABLET BY MOUTH DAILY 90 Tablet 1 08/13/19 25 Active finasteride (PROSCAR) 5 MG TabletIndicatio ns:Benign prostatic hyperplasia with lower urinary tract symptoms TAKE 1 TABLET BY MOUTH DAILY 90 Tablet 1 08/13/19 25 Active valsartan-hydro CHLOROthiazide (DIOVAN-HCT) 160-12.5 MG Tablet TAKE 1 TABLET BY MOUTH EVERY DAY 90 Tablet 1 09/14/19 25 Active FLUoxetine (PROzac) 10 MG CapsuleIndicati ons:Anxiety and depression TAKE 1 CAPSULE BY MOUTH DAILY 90 Capsule 1 10/01/19 25 Active gabapentin (NEURONTIN) 100 MG CapsuleIndicati ons:Herpes zoster without complication TAKE 1 CAPSULE BY MOUTH TWICE DAILY 180 Capsule 1 10/04/19 25 Active Additional Information Patient not taking.Reported on 10/24/2024 Cyanocobalamin (VITAMIN B 12 PO) Take by mouth. Activ e empagliflozin (Jardiance) 25 MG Tablet Take 1 Tablet by mouth daily. 90 Tablet 1 10/25/19 25 Active glipiZIDE (GLUCOTROL) 10 MG Tablet Take 1 Tablet by mouth 2 times daily. 180 Tablet 1 10/25/19 25 Active metFORMIN (GLUCOPHAGE) 1000 MG Tablet Take 1 Tablet by mouth 2 times daily. 180 Tablet 1 10/25/19 25 Active meloxicam (MOBIC) 15 MG Tablet Take 1 Tablet by mouth daily. 90 Tablet 1 12/16/19 25 Active pravastatin (PRAVACHOL) 40 MG Tablet TAKE 1 TABLET BY MOUTH EVERY EVENING 90 Tablet 3 12/27/19 25 Active tamsulosin (FLOMAX) 0.4 MG Capsule Take 1 Capsule by mouth daily. 90 Capsule 3 12/27/19 25 Active pravastatin (PRAVACHOL) 40 MG Tablet Take 1 Tablet by mouth every evening. 90 Tablet 3 01/01/20 24 2024 Discontinued tamsulosin (FLOMAX) 0.4 MG Capsule Take 1 Capsule by mouth daily. 90 Capsule 3 01/01/20 24 2024 Discontinued(R eorder) Active Problems Problem Noted Date Diagnosed Date Class 1 obesity due to exces s calories with serious comorbidity and body mass index (BMI) of 30.0 to 30.9 in adult 07/01/2019 Gastroesophageal reflux disease without esophagi tis 12/28/2018 Lung nodules 07/23/2015 BPH (benign prostatic hyperplasia) 06/12/2015 Hypertension, essential Type 2 diabetes mellitus wit h diabetic polyneuropathy, without long-term current use of insulin ASHD (arteriosclerotic heart disease) Mixed hyperlipidemia CLL (chronic lymphocytic leukemia) Overview (04/07/2015): 2013 Resolved Problems Problem Noted Date Diagnosed Date Resolved Date Adenomatous polyp of colon 03/22/2021 0 01/01/2024 Encounters Date Type Department Care Team Description 12/26/2024 Refill [facility] [place] [address] [place] [address] Ricardo Wayne MD Medication Refill 12/26/2024 Refill [facility] - [address] [address] Ricardo Wayne MD Medication Refill 12/04/2024 Refill [facility] - [address] [address] Ricardo Wayne MD Medication Refill 12/01/2024 Refill [facility] - [address] [address] Ricardo Wayne MD Medication Refill 10/24/2024 9:15 AM CDT Office Visit [facility] [address] [place] [address] Ai Lopez MD Type 2 diabetes mellitus with diabetic polyneuropathy, without long-term current use of insulin (HCC) (Primary Dx); Hypoglycemia; Overweight Discharge Disposition: Discharged to home or Selfcare 10/24/2024 Travel 10/12/2024 Refill [facility] [address] [place] [address] Ai Lopez MD Medication Refill from Last 3 Months Immunizations Immunization Administration Dates Next Due Covid-19 Vaccine, Vector-nr, Rs-ad26, Pf, 0.5 Ml (SUJATA/J&J) 04/13/2024 Covid-19, Mrna, Lnp-s, PF, 1 00 mcg/0.5 mL Dose (Moderna) 08/15/2020,07/18/2020 Covid-19, Mrna, Lnp-s, Pf, Jaron-sucrose, 30 Mcg/0.3 Ml (Pfizer) 06/23/2023 DTAP VACCINE 06/12/2007 Influenza Vaccine greater than 3 yrs 03/01/2020, 06/12/2012 Influenza Vaccine, Quadrivalent, PF 05/12,03/19/2019,03/15/2018,03/13 Influenza, High-dose, Quadrivalent 03/27/2023 Influenza, Quadrivalent, Adjuvanted 04/13/2022 Influenza, Seasonal, Injecta ble, Undefined 05/15/2014 Influenza, Trivalent, Adjuvanted, PF 04/13/2024 Influenza, high-dose, trivalent, PF 02/25/2015 02/26/2016 PUR FLU HIGH DOSE (FLUZONE) 03/11/2016 PUR PCV-13 03/11/2016,08/25/2015 Pneumococcal Vaccine Adult - 23 Valent 02/26/2015,01/26/2014 TDAP Vaccine 02/12/2022 Family History Medical History Relation Name Comments Hypertension Brother Heart Disease Father Diabetes Mother Diabetes Sister Relation Name Status Comments Brother Alive Father Mother Sister Social History Tobacco Use Types Packs/Day Years Used Date Smoking Tobacco: Former Cigarettes 1 20 Smokeless Tobacco: Never Tobacco Cessation:Counseling Given: Not Answered Comments:Quit 40yrs ago Alcohol Use Standard Drinks/Week Comments No 0 (1 standard drink = 0.6 oz pur e alcohol) PHQ-2 Answer Date Recorded Total Score - Questions 1-9 0 06/14 Sexually Active Control Partners Comments Not Currently Sex and Gender Information Value Date Recorded Sex Assigned at Male 01/23/2023 7:40 AM CDT Legal Sex Male 10:30 PM CDT Gender Identity Male 01/23/2023 7:40 AM CDT Sexual Orientation Not on file Last Filed Vital Signs Vital Sign Reading Time Taken Comments Blood Pressure 132/70 10/24/2024 9:04 AM CDT Pulse 68 10/24/2024 9:04 AM CDT Temperature 36.5 C (97.7 F) 10/24/2024 9:04 AM CDT Respiratory Rate 22 10/24/2024 9:04 AM CDT Oxygen Saturation 94% 10/24/2024 9:04 AM CDT Inhaled Oxygen Concentration - - Weight 88.5 kg (195 lb) 10/24/2024 9:04 AM CDT Height 177.8 cm (5' 10) 07/12/2024 8:34 AM BISQUE CLEANER Body Mass Index 27.98 07/12/2024 8:34 AM BISQUE CLEANER Plan of Treatment Upcoming Encounters Date Type Department Care Team (Late st Contact Info) Description 01/20/2025 8:15 AM CDT Office Visit [facility] - Primary Care - [place] [address] [place] [address] Ricardo Wayne MD [address] [place] [address] 01/28/2025 8:00 AM CDT Office Visit [facility] - Endocrinology - [place] [address] [place] [address] Ai Lopez MD [address] [address] 03/19/2025 10:20 AM CDT Office Visit [facility] - Cancer Center Oncology Services [address] [place] [address] Nima Wisdom MD [address] [place] [address] Discharge Disposition: Discharged to home or Selfcare Health Maintenance Due Date Last Done Comments Zoster Immunization (1 of 2) 1964 Diabetes: Eye Exam 01/23/2018 01/23/2017, 08/05/2016 Respiratory Syncytial Virus (RSV) Immunization (Adult) (1 - 1-dose 75+ series) 2021 SARS-COV-2 Immunization ( season) 2024 04/13/2024, 06/23/2023, 04/30/2021, Additional history exists Influenza Immunization (#1) 2025 110 07/2023, 03/27/2023, 04/13/2022, Additional history exists Diabetes: Foot Exam 02/18/2025 02/19/2024, 11/08/2023, 01/23/2023 Diabetes: Nephropathy Screening 03/16/2025 03/16/2024, 01/01/2024, 02/20/2023, Additional history exists Diabetes: Hemoglobin A1c 04/26/2025 025, 05/20/2024, 02/19/2024, Additional history exists AAA Screening Ultrasound Discontinued 08/05/2015 Pneumococcal Immunization (50+ years) Completed 03/11/2016, 08/25/2015, 02/26/2015, Additional history exists Pneumococcal Immunization Combined Discontinued 03/11/2016, 08/25/2015, 02/26/2015, Additional history exists Colonoscopy Discontinued 08/09/2021, 04/26/2013 Colorectal Cancer Screening Discontinued DTaP/Tdap/Td Immunization Discontinued 02/12/2022, 06/2007 Hepatitis C Virus (HCV) Screening Completed 06/23/2023 Cologuard Discontinued Hepatitis B Immunization Aged Out No longer eligible based on patient's age to complete this topic Human Papillomavirus (HPV) Immunization Aged Out No longer eligible based on patient's age to complete this topic Immunochemical Fecal Occult Blood Discontinued Meningococcal Immunization (ACWY) Aged Out No longer eligible based on patient's age to complete this topic Rotavirus Immunization Aged Out No lo nger eligible based on patient's age to complete this topic Procedures Procedure Name Priority Date/Time Associated Diagnosis Comments POCT GLYCOSYLATED HEMOGLOBIN Routine 10/24/2024 9:09 AM CDT Type 2 diabetes mellitus with diabetic polyneuropathy, without long-term current use of insulin (HCC) CMP (COMPREHENSIVE METABOLIC PANEL) Routine 03/16/2024 8:41 AM CDT CLL (chronic lymphocytic leukemia) (HCC) HEPATITIS C ANTIBODY Routine 06/23/2023 9:58 AM BISQUE CLEANER Encounter for hepatitis C screening test for low risk patient DILATED EYE EXAM Routine 01/23/2017 COLONOSCOPY Routine 04/26/2013 from Last 3 Months or Most Recently Relevant to Health Maintenance Results * (ABNORMAL) POCT GLYCOSYLATED HEMOGLOBIN (10/24/2024 9:09 AM CDT) HGB-A1C 7.6(A) 4 - 6 % Blood 10/24/2024 9:09 AM CDT us Ai Lopez MD POINT OF CARE TESTING (MANUAL) F inal Result * (ABNORMAL) CMP (COMPREHENSIVE METABOLIC PANEL) (03/16/2024 8:41 AM CDT) SODIUM 138 136 - 145 mmol/L 03/16/2024 9:29 AM CDT [facility] POTASSIUM 3.7 3.5 - 5.1 mmol/L 03/16/2024 9:29 AM CDT [facility] CHLORIDE 104 98 - 107 mmol/L 03/16/2024 9:29 AM CDT [facility] CO2, VENOUS 27 22 - 30 mmol/L 03/16/2024 9:29 AM CDT [facility] ANION GAP 10.7 <18.0 mmol/L 03/16/2024 9:29 AM CDT [facility] GLUCOSE 137(H) 70 - 99 mg/dL 03/16/2024 9:29 AM CDT [facility] BUN 17 8 - 26 mg/dL 03/16/2024 9:29 AM CDT [facility] CREATININE, BLOOD 1.08 0.70 - 1.30 mg/dL 03/16/2024 9:29 AM CDT [facility] BUN/CREATININE RATIO 16 12 - 20 ratio 03/16/2024 9:29 AM CDT [facility] TOTAL PROTEIN 7.5 6.3 - 8.2 g/dL 03/16/2024 9:29 AM CDT [facility] ALBUMIN 4.2 3.5 - 5.0 g/dL 03/16/2024 9:29 AM CDT [facility] A/G RATIO 1.3 1.0 - 2.2 03/16/2024 9:29 AM CDT [facility] CALCIUM 9.8 8.7 - 10.5 mg/dL 03/16/2024 9:29 AM CDT [facility] T BILI 0.7 0.2 - 1.2 mg/dL 03/16/2024 9:29 AM CDT [facility] SGOT (AST) 18 5 - 34 U/L 03/16/2024 9:29 AM CDT [facility] SGPT (ALT) 21 0 - 55 U/L 03/16/2024 9:29 AM CDT [facility] ALKALINE PHOSPHATASE 62 40 - 150 U/L 03/16/2024 9:29 AM CDT [facility] IS THE PATIENT REQUIRED TO BE FASTING? No 03/16/2024 9:29 AM CDT [facility] GFR, ESTIMATED >60 >=60 03/16/2024 9:29 AM CDT [facility] Comment: Creatinine Clearance is the preferred criteria for selecting drug dose adjustments in renally impaired patients. The GFR is provided as additional pertinent clinical information. GFR is reported in mL/min/1.73 sq m. Calculation based on the Chronic Kidney Disease Epidemiology Collaboration (CKD- EPI) equation refit without adjustment for race. GFR, EST. >60 >=60 024 9:29 AM CDT [facility] GFR, EST. NONAFRICAN >60 >=60 03/16/2024 9:29 AM CDT [facility] Blood Venipuncture / Unknown 03/16/2024 8:41 AM CDT 03/16/2024 9:07 AM CDT us Nimajohan Wisdom MD CHEMISTRY ORDERABLES Fin al Result [facility] [address] [facility] [place] [address] * HEPATITIS C ANTIBODY (06/23/2023 9:58 AM BISQUE CLEANER) hepatitis C antibody 0.09 <1 S/CO [facility]CH [id number] 06/24/2023 3:37 PM BISQUE CLEANER [facility] Comment: Signal/Cutoff ratio < 0.79 is Nondetected Signal/Cutoff ratio 0.80-0.99 is Grayzone Signal/Cutoff ratio > 0.99 is Detected Supplemental assays are recommended if signal/cutoff ratio is >/=1.00. Signal/cutoff ratio result >/= 5.00 is 97% predictive of positivity for recombinant immunoblot assay (RIBA) and will be reported to the [place] Department of Public Health as required. Blood Venipuncture / Unknown 06/23/2023 9:58 AM BISQUE CLEANER 06/23/2023 9:58 AM BISQUE CLEANER Ricardo Wayne MD CHEMISTRY ORDERABLES Lucia l Result [facility] [address] [place] [address], * DILATED EYE EXAM (01/23/2017) us Ricardo Wayne MD PROCEDURE/MINOR SURGICAL ORDERABLES Final Result * COLONOSCOPY (04/26/2013) Misael Tejeda DO PROCEDURE/MINOR SURGICAL ORDERA BLES Final Result from Last 3 Months or Most Recently Relevant to Health Maintenance Insurance [employer] [place] [employer] C [employer] Care Teams Automatic Brine Mixer Operator Relationship Specialty Start Date End Date Ricardo Wayne MD [address] [place] [address] PCP - General Internal Medicine 03/08/15 Nima Wisdom MD [address] [place] [address] Consulting Physician Hematology 08/25/15 Brett Winter MD [address] [place] [address] Consulting Physician Orthopaedic Sports Medicine 09/20/18 Ai Lopez MD [address] [address] Consulting Physician Endocrinology 05/14/20 Jonathon Castaneda OD [address] [place] [address] [place] [address] Consulting Physician Ophthalmology 04/18/24
[2025-01-05 08:40] VITALS: BP 154/72; PULSE 85; RESP 20; TEMP 36.6; O2SAT 100
--- NOTE | 2025-01-05 08:51 | ED_ITS ---
HPI - Skin/Abscess/Foreign Bdy General Chief complaint: Skin/Abscess/Foreign Body Stated complaint: red spot leg Time Seen by Provider: 01/05/25 08:34 patient presents to Express Care with complaints of redness some occasional pain, and swelling around a store to left fields. Patient noted he dropped a cooler on this area 2-3 weeks ago. Patient reports he will think keeping the area clean and applying Neosporin to the area. Denies fever, chills, body aches, drainage from the area, numbness or tingling. Related Data Home Medications ?Medication ?Instructions ?Recorded ?Confirmed ?Last Taken ?Type famotidine 20 mg tablet mg 09/20/22 Unknown History glipizide 10 mg tablet mg 09/20/22 Unknown History meloxicam 15 mg tablet mg 09/20/22 Unknown History nifedipine 90 mg tablet,extended mg PO 09/20/22 Unknown History release pravastatin 40 mg tablet mg 09/20/22 Unknown History tamsulosin 0.4 mg capsule mg PO 09/20/22 Unknown History valsartan 160 tablet 09/20/22 Unknown History mg-hydrochlorothiazide 12.5 mg tablet empagliflozin 25 mg tablet mg 01/05/25 Unknown History (Jardiance) finasteride 5 mg tablet mg 01/05/25 Unknown History fluoxetine 10 mg capsule mg 01/05/25 Unknown History gabapentin 100 mg capsule mg 01/05/25 Unknown History latanoprost 0.005 % eye drops drp 01/05/25 Unknown History metformin 1,000 mg tablet mg 01/05/25 Unknown History Allergies Allergy/AdvReac Type Severity Reaction Status Date / Time No Known Allergies Allergy Unknown Unverified 01/05/25 08:43 Review of Systems Constitutional: Constitutional: Reports as per HPI, Denies chills, Denies fatigue, Denies fever(s) and Denies weakness Eyes: Eyes: Reports no additional eye complaints Cardiovascular: Cardiovascular: Reports no additional cardiovascular complaints Respiratory: Respiratory: Reports no additional respiratory complaints Gastrointestinal: Gastrointestinal: Reports no additional gastrointestinal complaints Genitourinary: Genitourinary: Reports no additional male genitourinary complaints Musculoskeletal: Musculoskeletal: Reports as per HPI, Denies arthralgias, Denies joint swelling and Denies muscle cramps Comments: Swelling around open area Integumentary/Breasts: Skin/Breast: Reports as per HPI, Reports erythema, Denies rash and Denies skin ulcer Comments: wound to left fields, redness and swelling around area Neurologic: Reports as per HPI, Denies numbness and Denies weakness Psychiatric: Psychiatric: Reports no additional psychiatric complaints Endocrine: Endocrine: Reports no additional endocrine complaints Hematologic/Lymphatic: Hematologic/Lymphatic: Reports no additional hematologic/lymphatic complaints Allergic/Immunologic: Allergic/Immunologic: Reports no additional allergic/immunologic complaints Exam Const: General: healthy appearing and no acute distress Nutritional Appearance: well nourished Orientation/consciousness: patient oriented x3 Limitations: no limitations Resp: Effort & Inspection: normal respiratory effort Auscultation: clear to auscultation bilaterally Cardio: Rate: regular rate Rhythm: regular rhythm Skin: General skin exam: normal color Rashes: no rashes Wounds: wounds noted Other: circular area of erythema with scabbed open wound in the center. Erythema diameter 4 cm. Moderate swelling and warmth noted. No active drainage, crusting, or streaking. Neuro: General: patient oriented x3 and moves all extremities Speech: normal speech Gait exam (Neuro): Normal gait present Extrem: General: no pedal edema Psych: Mental Status: mental status grossly normal Affect: normal affect Attitude: cooperative Course Course Level of Care: Express Care Visit Vital Signs Vital signs: Vital Signs Temperature 97.8 F 01/05/25 08:40 Pulse Rate 85 01/05/25 08:40 Respiratory Rate 20 01/05/25 08:40 Blood Pressure 154/72 H 01/05/25 08:40 Pulse Oximetry 100 01/05/25 08:40 Oxygen Delivery Room Air 01/05/25 08:40 Temperature 97.8 F 01/05/25 08:40 Pulse Rate 85 01/05/25 08:40 Respiratory Rate 20 01/05/25 08:40 Blood Pressure 154/72 H 01/05/25 08:40 Pulse Oximetry 100 01/05/25 08:40 Oxygen Delivery Room Air 01/05/25 08:40 MDM - Skin/Abscess/Foreign Bdy MDM Narrative Medical decision making narrative: Cellulitis noted around open wound. Educated patient on wound care. Discharge instructions reviewed with patient, as well as provided in writing per nursing staff. The instructions also include specific and strict return/GO TO THE ER as well as f/u information. All questions have been answered, and the patient deny any further questions with discharge and discharge plan. Differential Diagnosis Differential diagnosis: Likely abscess of skin or subcutaneous tissue, urticaria, allergic reaction to drug, cellulitis, impetigo and contact dermatitis Medical Records Attestation: I reviewed the patient's medical records. Discharge Plan Discharge Clinical Impression: Cellulitis of left anterior lower leg Patient Disposition: Home Condition: Stable Instructions: Antibiotic Form, Cellulitis (ED) Additional Instructions: Clean with soap and water only; Avoid using alcohol and peroxide. Elevate the affected area if possible Alternate Tylenol/ibuprofen for as needed for pain Acetaminophen(Tylenol) 650- 1000mg every 4-6hours with max of 4000mg/day. Nonsteroidal anti-inflammatory agent (NSAIDs-ibuprofen): 400mg every 4-6hours with max 2400mg/day Take antibiotic until it's gone. Please schedule a follow up visit with your personal physician for further ev aluation and treatment within 3-5days OR if your symptoms persist, change or worsen significantly before you can contact your personal physician then please, without delay, go to the emergency department for further evaluation. Patient Language: Grenadian Prescriptions: New cephalexin 500 mg capsule 500 mg PO Q12H Qty: 20 0RF mupirocin [Centany] 2 % ointment 1 applic topical BID Qty: 22 0RF No Action Jardiance 25 mg tablet latanoprost 0.005 % drops metformin 1,000 mg tablet fluoxetine 10 mg capsule gabapentin 100 mg capsule finasteride 5 mg tablet pravastatin 40 mg tablet nifedipine 90 mg tablet extended release PO meloxicam 15 mg tablet glipizide 10 mg tablet valsartan-hydrochlorothiazide 160-12.5 mg tablet famotidine 20 mg tablet tamsulosin 0.4 mg capsule PO azithromycin [Zithromax Z-Catalino] 250 mg tablet 250 mg PO DAILY 5 Days Qty: 5 0RF Rx Instructions: Take 500 mg on Day 1, 250 mg on Days 2-5. Follow-up/Referrals: Rosana,Ricardo Dooley MD [Primary Care Provider] - Time of Disposition: 09:01
== END 2025-01-05 09:11 | disposition home or self-care (01) ==
PROVIDERS: Emergency Provider Nurse Practitioner Family; PCP Internal Medicine
DX: L03.116 Cellulitis of left lower limb (principal)
CPT/HCPCS: 99213; G0463